=== PATIENT | female | born 1950 | race Caucasian/White ===

== ENCOUNTER 2020-03-20 10:41 | Inpatient (IN) | payer MEDICARE ==
[~2020-03-20] VITALS: Ht 160 cm; Wt 114.9 kg
[2020-03-20] MEDS ORDERED: LACTATED RINGERS 1,000 ML IV SCH (11:13)
[2020-03-20] MEDS ORDERED: CHLORHEXIDINE 15 ML UDC MM STA (11:14)
[2020-03-20] MEDS ORDERED: PLEASE ENTER ALLERGIES MC SCH (11:30)
[2020-03-20] MEDS ORDERED: PLEASE ENTER HEIGHT AND WEIGHT MC SCH (11:30)
[2020-03-20] MEDS ORDERED: TRAZ-175 PO (11:46)
[2020-03-20] MEDS ORDERED: HYDR-3240 PO (11:46)
[2020-03-20] MEDS ORDERED: BENA10TA59 PO (11:46)
[2020-03-20] MEDS ORDERED: PROP160C PO (11:46)
[2020-03-20] MEDS ORDERED: ACET1TAB64 PO (11:46)
[2020-03-20] MEDS ORDERED: TERA2CAP3 PO (11:46)
[2020-03-20] MEDS ORDERED: ATOR20TA37 PO (11:46)
[2020-03-20] MEDS ORDERED: THROMBIN 20,000 UNIT VIAL TP ONE (11:50)
[2020-03-20] MEDS ORDERED: BACITRACIN 50,000 UNIT ONE (11:50)
[2020-03-20] MEDS ORDERED: BUPIVACAINE/PF 0.25% ONE (11:50)
[2020-03-20] MEDS ORDERED: CHLORHEXIDINE 15 ML UDC ONE (12:04)
[2020-03-20 12:05] LABS: BASOPHILS # (AUTO) 0.02 x10^3/uL (0-0.1); BASOPHILS % (AUTO) 0 % (0-1); EOSINOPHILS # (AUTO) 0.07 x10^3/uL (0-0.4); EOSINOPHILS % (AUTO) 1 % (1-7); LYMPHOCYTES # (AUTO) 1.86 x10^3/uL (1-3.4); LYMPHOCYTES % (AUTO) 26 % (22-44); MD NO; MEAN CORPUSCULAR HEMOGLOBIN 31.5 pg (27.0-34.8); MEAN CORPUSCULAR HGB CONC 33.9 g/dL (32.4-35.8); MEAN PLATELET VOLUME 7.8 fL (7.4-10.4); MONOCYTES # (AUTO) 0.54 x10^3/uL (0.2-0.8); MONOCYTES % (AUTO) 8 % (2-9); NEUTROPHILS # (AUTO) 4.56 x10^3/uL (1.8-6.8); NEUTROPHILS % (AUTO) 65 % (42-75); PLATELET COUNT 249 x10^3/uL (130-400); RED BLOOD COUNT 4.55 x10^6/uL (3.82-5.3)
[2020-03-20] MEDS ORDERED: FENTANYL PF 250 MCG/5ML ONE (12:27)
[2020-03-20] MEDS ORDERED: CEFAZOLIN PMX 2GM/50ML 50 ML IVPB ONE (12:30)
[2020-03-20] MEDS ORDERED: CEFAZOLIN 1,000 MG ONE (12:32)
[2020-03-20] MEDS ORDERED: PROPOFOL 10 MG/ML, 20ML ONE (12:32)
[2020-03-20] MEDS ORDERED: NEOSTIGMINE 1 MG/ML, 10ML ONE (12:32)
[2020-03-20] MEDS ORDERED: DEXAMETHASONE 4 MG/ML, 1ML ONE (12:32)
[2020-03-20] MEDS ORDERED: GLYCOPYRROLATE 0.2MG/1ML, 5ML ONE (12:32)
[2020-03-20] MEDS ORDERED: ONDANSETRON 2MG/ML, 2ML ONE (12:32)
[2020-03-20] MEDS ORDERED: SUCCINYLCHOLINE 20 MG/ML, 10ML ONE (12:32)
[2020-03-20] MEDS ORDERED: ROCURONIUM 10MG/ML,5ML ONE (12:32)
[2020-03-20] MEDS ORDERED: SUGAMMADEX 200 MG/2 ML IVPush ONE (12:34)
[2020-03-20] MEDS ORDERED: hydrALAzine 20 MG/ML, 1ML IV PRN (13:30)
[2020-03-20] MEDS ORDERED: ONDANSETRON 2MG/ML, 2ML IVPush PRN (13:30)
[2020-03-20] MEDS ORDERED: LORazepam 2 MG/ML, 1ML IVPush PRN (13:30)
[2020-03-20] MEDS ORDERED: PROMETHAZINE 25 MG SUPP PR PRN (13:30)
[2020-03-20] MEDS ORDERED: METHOCARBAMOL 1,000 MG in DEXTROSE 5% 100 ML IV PRN (13:30)
[2020-03-20] MEDS ORDERED: OXYcodone 5 MG/5 ML ORAL.SOL UDC PO PRN (13:30)
[2020-03-20] MEDS ORDERED: LABETALOL 5MG/ML, 20ML IV PRN (13:30)
[2020-03-20] MEDS ORDERED: ACETAMINOPHEN 325 MG TABLET PO PRN (13:30)
[2020-03-20] MEDS ORDERED: MEPERIDINE/PF 25MG/0.5ML IVPush PRN (13:30)
[2020-03-20] MEDS ORDERED: PROMETHAZINE 25 MG/ML, 1ML IVPush PRN (13:30)
[2020-03-20] MEDS ORDERED: FENTANYL PF 100 MCG/2ML ONE ×3 (14:13→16:17)
[2020-03-20] MEDS ORDERED: VANCOMYCIN 1,000 MG ONE (14:39)
[2020-03-20] MEDS ORDERED: VANCOMYCIN 1,000 MG IM ONE (14:42)
[2020-03-20] MEDS: FENTANYL PF 100 MCG/2ML IV PRN ×5 (15:15→16:19)
[2020-03-20] MEDS ORDERED: PHARMACY MAY ADJ FOR RENAL FX MC PRN (15:30)
[2020-03-20] MEDS ORDERED: DIPHENHYDRAMINE 50 MG CAPSULE PO PRN (15:30)
[2020-03-20] MEDS ORDERED: OXYcodone 5 MG/5 ML ORAL.SOL UDC ONE (15:30)
[2020-03-20] MEDS ORDERED: HYDROcodone/APAP 5/325 TABLET PO PRN (15:30)
[2020-03-20] MEDS: morphine SULFATE 10 MG/ML, 1ML IVPush PRN ×2 (15:56→16:05)
[2020-03-20 17:00] VITALS: BP 122/45
[2020-03-20] MEDS: MORPHINE SULFATE 4 MG/ML, 1ML IVPush PRN ×3 (19:06→23:52)
[2020-03-20 19:14] VITALS: BP 109/60
[2020-03-20] MEDS: OXYcodone/APAP 5/325MG TABLET PO PRN ×2 (19:45→23:51)
[2020-03-20] MEDS: CEFAZOLIN PMX 1GM/50ML 50 ML IVPB SCH ×2 (20:33→23:55)
[2020-03-20] MEDS: TRAZODONE 100MG TABLET PO SCH (20:34)
[2020-03-20] MEDS: ATORVASTATIN 20 MG TABLET PO SCH (20:34)
[2020-03-20] MEDS: LACTATED RINGERS 1,000 ML IV SCH (20:34)
[2020-03-20] MEDS: TERAZOSIN 2MG CAPSULE PO SCH (20:34)
[2020-03-20] MEDS ORDERED: PROPRANOLOl 80 MG CAP.SA.24H PO SCH (22:00)
[2020-03-20] MEDS: SENNA/DOCUSATE TABLET PO PRN (23:20)
[2020-03-20] MEDS: CYCLOBENZAPRINE 10 MG TABLET PO PRN (23:20)
[2020-03-20] MEDS: PROPRANOLOl 80 MG CAP.SA.24H PO SCH (23:52)
[2020-03-21 01:00] VITALS: BP 100/67
[2020-03-21 04:00] VITALS: BP 125/70
[2020-03-21] MEDS: OXYcodone/APAP 5/325MG TABLET PO PRN ×2 (04:04→10:52)
[2020-03-21] MEDS: LACTATED RINGERS 1,000 ML IV SCH (06:08)
[2020-03-21] MEDS: MORPHINE SULFATE 4 MG/ML, 1ML IVPush PRN ×5 (06:12→21:11)
[2020-03-21 07:42] VITALS: BP 98/62
[2020-03-21] MEDS: PROPRANOLOl 80 MG CAP.SA.24H PO SCH ×2 (08:50→21:03)
[2020-03-21] MEDS: CEFAZOLIN PMX 1GM/50ML 50 ML IVPB SCH (08:50)
[2020-03-21] MEDS: BENAZEPRIL 10 MG TABLET PO SCH (08:52)
[2020-03-21] MEDS: CYCLOBENZAPRINE 10 MG TABLET PO PRN ×2 (08:56→21:04)
[2020-03-21 08:57] VITALS: BP 108/74
[2020-03-21] MEDS ORDERED: PROPRANOLOl 80 MG CAP.SA.24H PO SCH ×2 (09:00)
[2020-03-21 13:00] VITALS: BP 102/68
[2020-03-21] MEDS: OXYcodone/APAP 10/325MG TABLET PO PRN ×2 (15:39→21:04)
[2020-03-21 19:43] VITALS: BP 119/83
[2020-03-21] MEDS: TERAZOSIN 2MG CAPSULE PO SCH (21:03)
[2020-03-21] MEDS: TRAZODONE 100MG TABLET PO SCH (21:04)
[2020-03-21] MEDS: ATORVASTATIN 20 MG TABLET PO SCH (21:04)
[2020-03-22] MEDS: LACTATED RINGERS 1,000 ML IV SCH ×3 (00:14→22:42)
[2020-03-22] MEDS: MORPHINE SULFATE 4 MG/ML, 1ML IVPush PRN ×5 (00:28→20:50)
[2020-03-22 01:18] VITALS: BP 102/55
[2020-03-22] MEDS: OXYcodone/APAP 10/325MG TABLET PO PRN ×5 (01:23→19:33)
[2020-03-22] MEDS: ONDANSETRON 2MG/ML, 2ML IVPush PRN (04:52)
[2020-03-22] MEDS: CYCLOBENZAPRINE 10 MG TABLET PO PRN ×2 (04:52→20:49)
[2020-03-22 07:22] VITALS: BP 97/67
[2020-03-22] MEDS: BENAZEPRIL 10 MG TABLET PO SCH (07:50)
[2020-03-22] MEDS: PROPRANOLOl 80 MG CAP.SA.24H PO SCH ×2 (07:50→20:50)
[2020-03-22] MEDS: CALCIUM CARBONATE 500 MG TAB.CHEW PO PRN (08:47)
[2020-03-22] MEDS: POLYETHYLENE GLYCOL 17 GM PACKET PO SCH (08:47)
[2020-03-22] MEDS ORDERED: FAMOTIDINE 20 MG/2 ML IVPush SCH (09:00)
[2020-03-22 12:41] VITALS: BP 92/53
[2020-03-22 16:07] VITALS: BP 111/74
[2020-03-22 19:29] VITALS: BP 110/60
[2020-03-22] MEDS: TRAZODONE 100MG TABLET PO SCH (20:49)
[2020-03-22] MEDS: FAMOTIDINE 20 MG TABLET PO SCH (20:50)
[2020-03-22] MEDS: ATORVASTATIN 20 MG TABLET PO SCH (20:50)
[2020-03-22] MEDS: TERAZOSIN 2MG CAPSULE PO SCH (20:50)
[2020-03-22 20:51] VITALS: BP 113/57
[2020-03-23 01:37] VITALS: BP 114/73
[2020-03-23] MEDS: OXYcodone/APAP 10/325MG TABLET PO PRN ×2 (05:37→11:34)
[2020-03-23] MEDS: MORPHINE SULFATE 4 MG/ML, 1ML IVPush PRN ×2 (05:56→12:56)
[2020-03-23 07:09] VITALS: BP 91/62
[2020-03-23] MEDS: BENAZEPRIL 10 MG TABLET PO SCH (07:50)
[2020-03-23] MEDS: PROPRANOLOl 80 MG CAP.SA.24H PO SCH ×2 (07:50→21:45)
[2020-03-23] MEDS: POLYETHYLENE GLYCOL 17 GM PACKET PO SCH (07:58)
[2020-03-23] MEDS: FAMOTIDINE 20 MG TABLET PO SCH ×2 (07:58→21:45)
[2020-03-23] MEDS: LACTATED RINGERS 1,000 ML IV SCH ×2 (11:34→21:43)
[2020-03-23 12:34] VITALS: BP 93/61
[2020-03-23] MEDS ORDERED: MAGNESIUM HYDROXIDE 8%, 30ML UDC ONE (13:10)
[2020-03-23 13:20] LABS: MEAN CORPUSCULAR HEMOGLOBIN 31.3 pg (27.0-34.8); MEAN CORPUSCULAR HGB CONC 33.2 g/dL (32.4-35.8); MEAN PLATELET VOLUME 7.1 fL (7.4-10.4); PLATELET COUNT 185 x10^3/uL (130-400); RED BLOOD COUNT 3.43 x10^6/uL (3.82-5.3); RED CELL DISTRIBUTION WIDTH 12.7 % (9.6-15.2)
[2020-03-23 13:22] LABS: ANION GAP 6 mmol/L (5-15); CALCIUM 8.8 mg/dL (8.5-10.1); CHLORIDE 104 mmol/L (98-107); CREATININE 1.19 mg/dL (0.55-1.02)
[2020-03-23] MEDS ORDERED: MAGNESIUM HYDROXIDE 8%, 30ML UDC PO PRN (13:30)
[2020-03-23 13:33] LABS: BASOPHILS # (AUTO) 0.04 x10^3/uL (0-0.1); BASOPHILS % (AUTO) 0 % (0-1); EOSINOPHILS # (AUTO) 0.18 x10^3/uL (0-0.4); EOSINOPHILS % (AUTO) 2 % (1-7); LYMPHOCYTES # (AUTO) 1.44 x10^3/uL (1-3.4); LYMPHOCYTES % (AUTO) 14 % (22-44); MD SCAN; MONOCYTES # (AUTO) 0.86 x10^3/uL (0.2-0.8); MONOCYTES % (AUTO) 8 % (2-9); NEUTROPHILS # (AUTO) 8.03 x10^3/uL (1.8-6.8); NEUTROPHILS % (AUTO) 76 % (42-75)
[2020-03-23] MEDS: OXYcodone/APAP 5/325MG TABLET PO PRN (18:48)
[2020-03-23 19:45] VITALS: BP 113/62
[2020-03-23] MEDS: TRAZODONE 100MG TABLET PO SCH (21:44)
[2020-03-23] MEDS: ATORVASTATIN 20 MG TABLET PO SCH (21:44)
[2020-03-23] MEDS: TERAZOSIN 2MG CAPSULE PO SCH (21:45)
[2020-03-24 01:23] VITALS: BP 107/72
[2020-03-24] MEDS: LACTATED RINGERS 1,000 ML IV SCH ×2 (05:01→20:09)
[2020-03-24] MEDS: OXYcodone/APAP 5/325MG TABLET PO PRN ×3 (05:01→20:49)
[2020-03-24] MEDS: BISACODYL 10 MG SUPP PR PRN (05:01)
[2020-03-24 05:57] LABS: CREATININE 1.29 mg/dL (0.55-1.02)
[2020-03-24 08:07] VITALS: BP 95/62
[2020-03-24] MEDS: FAMOTIDINE 20 MG TABLET PO SCH (08:25)
[2020-03-24] MEDS: POLYETHYLENE GLYCOL 17 GM PACKET PO SCH (08:26)
[2020-03-24] MEDS: PROPRANOLOl 80 MG CAP.SA.24H PO SCH ×2 (08:26→20:50)
[2020-03-24] MEDS: BENAZEPRIL 10 MG TABLET PO SCH (08:26)
[2020-03-24] MEDS ORDERED: BUPIVACAINE/PF 0.25% ONE (09:59)
[2020-03-24] MEDS ORDERED: BACITRACIN 50,000 UNIT ONE (09:59)
[2020-03-24] MEDS ORDERED: THROMBIN 20,000 UNIT VIAL TP ONE (09:59)
[2020-03-24] MEDS ORDERED: BUPIVACAINE/PF-EPI 0.25% 1:200K ONE (12:57)
[2020-03-24] MEDS ORDERED: BUPIVACAINE/EPI 0.5% 1:200K ONE (12:57)
[2020-03-24] MEDS ORDERED: CHLORHEXIDINE 15 ML UDC ONE (13:00)
[2020-03-24] MEDS ORDERED: CHLORHEXIDINE 15 ML UDC MM ONE (13:00)
[2020-03-24] MEDS ORDERED: FENTANYL PF 250 MCG/5ML ONE (13:10)
[2020-03-24] MEDS ORDERED: MIDAZOLAM 1 MG/ML, 2ML ONE (13:10)
[2020-03-24] MEDS ORDERED: DEXAMETHASONE 4 MG/ML, 1ML ONE (13:12)
[2020-03-24] MEDS ORDERED: PROPOFOL 50 ML ONE ×2 (13:52→15:35)
[2020-03-24] MEDS ORDERED: ONDANSETRON 2MG/ML, 2ML ONE (13:55)
[2020-03-24] MEDS ORDERED: SUGAMMADEX 200 MG/2 ML IVPush ONE (13:55)
[2020-03-24] MEDS ORDERED: CEFAZOLIN PMX 1GM/50ML ONE (13:55)
[2020-03-24] MEDS ORDERED: THROMBIN 5,000 UNIT VIAL TP ONE (14:25)
[2020-03-24] MEDS ORDERED: BACITRACIN 50,000 UNIT IM ONE (14:25)
[2020-03-24] MEDS ORDERED: BUPIVACAINE/PF-EPI 0.25% 1:200K SQ ONE (14:25)
[2020-03-24] MEDS ORDERED: VANCOMYCIN 1,000 MG ONE (15:04)
[2020-03-24] MEDS ORDERED: ONDANSETRON 2MG/ML, 2ML IVPush PRN (18:00)
[2020-03-24] MEDS ORDERED: PROMETHAZINE 25 MG/ML, 1ML IVPush PRN (18:00)
[2020-03-24] MEDS ORDERED: DIAZEPAM 5 MG/ML, 2ML IVPush PRN (18:00)
[2020-03-24] MEDS ORDERED: morphine SULFATE 10 MG/ML, 1ML IVPush PRN (18:00)
[2020-03-24] MEDS ORDERED: LABETALOL 5MG/ML, 20ML IV PRN (18:00)
[2020-03-24] MEDS ORDERED: OXYcodone 5 MG/5 ML ORAL.SOL UDC PO PRN (18:00)
[2020-03-24] MEDS ORDERED: hydrALAzine 20 MG/ML, 1ML IV PRN (18:00)
[2020-03-24] MEDS ORDERED: DIPHENHYDRAMINE 50 MG/ML, 1ML IVPush PRN ×2 (18:00)
[2020-03-24] MEDS ORDERED: PROMETHAZINE 12.5 MG SUPP PR PRN (18:00)
[2020-03-24] MEDS ORDERED: EPHEDRINE 50 MG/ML, 1ML IVPush PRN (18:00)
[2020-03-24] MEDS ORDERED: ALBUTEROL SULFATE 2.5 MG/3 ML NPPB PRN (18:00)
[2020-03-24] MEDS ORDERED: FENTANYL PF 100 MCG/2ML IV PRN (18:00)
[2020-03-24] MEDS ORDERED: MIDAZOLAM 1 MG/ML, 2ML IV PRN (18:00)
[2020-03-24] MEDS ORDERED: MEPERIDINE/PF 25MG/0.5ML IVPush PRN (18:00)
[2020-03-24 19:45] VITALS: BP 111/78
[2020-03-24] MEDS: CLINDAMYCIN PMX 600MG/50ML 50 ML IV SCH (20:09)
[2020-03-24] MEDS: TERAZOSIN 2MG CAPSULE PO SCH (20:50)
[2020-03-24] MEDS: ATORVASTATIN 20 MG TABLET PO SCH (20:50)
[2020-03-24] MEDS: TRAZODONE 100MG TABLET PO SCH (20:50)
[2020-03-24 23:47] VITALS: BP 114/76
[2020-03-25] MEDS: OXYcodone/APAP 5/325MG TABLET PO PRN ×4 (01:35→23:25)
[2020-03-25] MEDS: CLINDAMYCIN PMX 600MG/50ML 50 ML IV SCH ×2 (04:07→12:36)
[2020-03-25 04:08] VITALS: BP 100/70
[2020-03-25] MEDS: SENNA/DOCUSATE TABLET PO PRN (05:36)
[2020-03-25] MEDS: PROPRANOLOl 80 MG CAP.SA.24H PO SCH ×2 (09:00→20:25)
[2020-03-25] MEDS: BENAZEPRIL 10 MG TABLET PO SCH (09:00)
[2020-03-25 09:17] VITALS: BP 102/67
[2020-03-25] MEDS: FAMOTIDINE 20 MG TABLET PO SCH (09:20)
[2020-03-25] MEDS: POLYETHYLENE GLYCOL 17 GM PACKET PO SCH (09:21)
[2020-03-25] MEDS: OXYcodone/APAP 10/325MG TABLET PO PRN ×2 (10:04→14:55)
[2020-03-25] MEDS: CALCIUM CARBONATE 500 MG TAB.CHEW PO PRN (10:05)
[2020-03-25] MEDS: CYCLOBENZAPRINE 10 MG TABLET PO PRN ×2 (10:05→17:21)
[2020-03-25 14:21] VITALS: BP 113/61
[2020-03-25] MEDS: LACTATED RINGERS 1,000 ML IV SCH (15:00)
[2020-03-25] MEDS: ONDANSETRON 2MG/ML, 2ML IVPush PRN (19:19)
[2020-03-25 19:39] VITALS: BP 92/61
[2020-03-25] MEDS: ATORVASTATIN 20 MG TABLET PO SCH (20:25)
[2020-03-25] MEDS: TERAZOSIN 2MG CAPSULE PO SCH (20:25)
[2020-03-25] MEDS: TRAZODONE 100MG TABLET PO SCH (20:25)
[2020-03-25] MEDS: BISACODYL 10 MG SUPP PR PRN (20:26)
[2020-03-26 01:50] VITALS: BP 100/62
[2020-03-26] MEDS: CYCLOBENZAPRINE 10 MG TABLET PO PRN ×2 (03:53→20:48)
[2020-03-26] MEDS: OXYcodone/APAP 5/325MG TABLET PO PRN ×5 (03:53→21:29)
[2020-03-26] MEDS: LACTATED RINGERS 1,000 ML IV SCH ×3 (03:56→22:39)
[2020-03-26 08:00] VITALS: BP 100/65
[2020-03-26] MEDS: ONDANSETRON 2MG/ML, 2ML IVPush PRN (08:19)
[2020-03-26] MEDS: FAMOTIDINE 20 MG TABLET PO SCH (08:19)
[2020-03-26] MEDS: PROPRANOLOl 80 MG CAP.SA.24H PO SCH ×2 (09:36→20:48)
[2020-03-26] MEDS: POLYETHYLENE GLYCOL 17 GM PACKET PO SCH (09:37)
[2020-03-26] MEDS: BENAZEPRIL 10 MG TABLET PO SCH (09:37)
[2020-03-26 16:00] VITALS: BP 121/64
[2020-03-26] MEDS ORDERED: METOCLOPRAMIDE 5 MG/ML, 2ML IVPush PRN (20:00)
[2020-03-26 20:20] VITALS: BP 124/68
[2020-03-26] MEDS: TRAZODONE 100MG TABLET PO SCH (20:48)
[2020-03-26] MEDS: ATORVASTATIN 20 MG TABLET PO SCH (20:48)
[2020-03-26] MEDS: TERAZOSIN 2MG CAPSULE PO SCH (20:49)
[2020-03-27 01:11] VITALS: BP 107/70
[2020-03-27] MEDS: OXYcodone/APAP 5/325MG TABLET PO PRN ×4 (01:41→14:21)
[2020-03-27 07:00] VITALS: BP 119/79
[2020-03-27] MEDS: PROPRANOLOl 80 MG CAP.SA.24H PO SCH (09:13)
[2020-03-27] MEDS: BENAZEPRIL 10 MG TABLET PO SCH (09:13)
[2020-03-27] MEDS: FAMOTIDINE 20 MG TABLET PO SCH (09:13)
[2020-03-27] MEDS: POLYETHYLENE GLYCOL 17 GM PACKET PO SCH (09:17)
[2020-03-27] MEDS: LACTATED RINGERS 1,000 ML IV SCH (12:00)
[2020-03-27 14:50] VITALS: BP 116/87
== END 2020-03-27 15:15 | disposition home health service (06) | DRG 454 ==
LOC: ORIP 10:41 → 4NE 16:57 → DCLOUNGE 03-27 15:06
PROVIDERS: ADMIT Orthopaedic Surgery; ATTEND Orthopaedic Surgery
PROC: 0SG13A0 Fusion of 2 or more Lumbar Vertebral Joints with Interbody Fusion Device, Anterior Approach, Anterior Column, Percutaneous Approach (ICD-10-PCS; 2020-03-20)
PROC: 0ST20ZZ Resection of Lumbar Vertebral Disc, Open Approach (ICD-10-PCS; 2020-03-20)
PROC: 01NB0ZZ Release Lumbar Nerve, Open Approach (ICD-10-PCS; 2020-03-24)
PROC: 0SG0071 Fusion of Lumbar Vertebral Joint with Autologous Tissue Substitute, Posterior Approach, Posterior Column, Open Approach (ICD-10-PCS; 2020-03-24)
PROC: 0SG00K1 Fusion of Lumbar Vertebral Joint with Nonautologous Tissue Substitute, Posterior Approach, Posterior Column, Open Approach (ICD-10-PCS; principal; 2020-03-24 13:30)
DX: M48.062 Spinal stenosis, lumbar region with neurogenic claudication (principal); K56.7 Ileus, unspecified; M54.16 Radiculopathy, lumbar region; Z03.818 Encounter for observation for suspected exposure to other biological agents ruled out
CPT/HCPCS: 36415; 36573; 71045; 72100; 72110; 74018; 80048; 82565; 85025; 86850; 86900; 87635; 95938; 95941; C1713; G0378; J0690; J1100; J2250; J2405; J2704; J2710; J3010; J3370; J3490; C1751; C1762; C1889; J0330; J2060; J2270; J2800; J7120